=== PATIENT | female | born 1995 | race Caucasian/White ===

== ENCOUNTER 2016-09-12 22:21 | Emergency (ER) | payer OTHER ==
[~2016-09-12] VITALS: Ht 157.5 cm; Wt 53.5 kg
[2016-09-12 22:25] VITALS: Ht 157.5 cm; Wt 53.5 kg
[2016-09-12] MEDS ORDERED: ONDANSETRON 4 MG INJ IV STA (23:02)
--- NOTE | 2016-09-12 23:20 | ERD ---
ER Documentation Chief Complaint Date/Time DATE: 09/12/16 TIME: 23:19 Chief Complaint headaches x 5 days, states had spinal tap 6 days ago HPI This 21-year-old female presents the emergency department today complaining of headache for the past 6 days. Patient states that 4 weeks ago she started having some blurry vision in her left eye and she went to her primary care doctor and was told to go to the ER to get an MRI that was essentially normal. She saw a neurologist at that time and was given steroids because she "had a nerve inflamed in her eye". States she went to [facility] States that her vision is starting to come back. States that 6 days ago she had a spinal tap and was told it was "normal. States that she started with a headache the next day and was taking Tylenol however now it has gotten worse. States that the headache is throbbing on both sides of her head. States she does have some pain in her neck. States she did not go back to [facility] because this hospital was closer to her house. denies any fevers or chills. ROS All systems reviewed and are negative except as per history of present illness. Medications Home Meds Active Scripts Naproxen* (Naprosyn*) 500 Mg Tablet, 500 MG PO BID Y for PAIN AND/OR INFLAMMATION, #30 TAB Prov:JAZMIN ZAMORA PA-C 09/13/16 Allergies Allergies: Coded Allergies: No Known Drug Allergies (Verified Allergy, Unknown, 09/12/16) PMhx/Soc Medical and Surgical Hx: pt denies Medical Hx, pt denies Surgical Hx Hx Alcohol Use: No Hx Substance Use: No Hx Tobacco Use: No Smoking Status: Never smoker Physical Exam Vitals Vital Signs Date Time Temp Pulse Resp B/P Pulse Ox O2 Delivery O2 Flow Rate FiO2 09/13/16 00:52 98.0 61 18 102/56 99 Room Air 09/12/16 22:25 98.3 62 20 108/59 99 Physical Exam Const: NAD Head: Atraumatic Eyes: Normal Conjunctiva. PERRLA. EOM intact ENT: Normal External Ears, Nose and Mouth. Neck: Full range of motion..~ No meningismus. Negative Kernig Resp: Clear to auscultation bilaterally Cardio: Regular rate and rhythm, no murmurs Abd: Soft, non tender, non distended. Normal bowel sounds Skin: No petechiae or rashes Back: No midline or flank tenderness Ext: No cyanosis, or edema Neur: Awake and alert. No focal neurologic deficits. No gait ataxia Psych: Normal Mood and Affect Results 24 hrs Current Medications Medications (Trade) Dose Ordered Sig/Marlon Route PRN Reason Start Time Stop Time Status Last Admin Dose Admin Morphine Sulfate (morphine) 2 mg ONCE ONCE IV 09/12/16 23:30 09/12/16 23:31 DC 09/12/16 23:18 Ondansetron HCl 4 mg 4 mg ONCE STAT IV 09/12/16 23:02 09/12/16 23:04 DC 09/12/16 23:17 Sodium Chloride (NS) 1,000 ml @ 1,000 mls/hr Q1H ONCE IV 09/12/16 23:30 09/13/16 00:29 DC 09/12/16 23:17 Procedures/MDM This 21-year-old female presents the emergency department today complaining of a headache. Patient has previously been evaluated with an MRI and spinal tap in the past month. Patient is afebrile and otherwise well-appearing. She has full active range of motion of her neck. She has no focal neurologic deficits and no gait ataxia. Low suspicion for acute hemorrhage, mass, abscess, meningitis. Patient has a negative Kernig's and Brudzinski sign I discussed the patient with Dr. Castellanos he has requested visual acuity exam as well as medication for the pain for the patient. I do not feel the patient requires further laboratory workup or imaging at this time. Visual acuity left eye 20/70 Right eye 20/20 Bilateral 20/15 DIAGNOSTIC IMAGING REPORT Patient: TAMIKO DOMINGUEZ : 02/20/1993 Age: 23 Sex: M MR #: [id number] DOS: 09/13/16 0000 Ordering MD: JAZMIN ZAMORA PA-C Location: [facility] Room/Bed: PROCEDURE: XR right foot. CLINICAL INDICATION: Trauma. The patient stepped on a nail. Suspected foreign body under second toe TECHNIQUE: AP, lateral and oblique views of the right foot were obtained. COMPARISON: None. FINDINGS: Mineralization is within normal limits. No fracture or osseous lesion is identified. There is no evidence for dislocation. Joint spaces are preserved. The soft tissues are unremarkable. There is no evidence for radiopaque foreign body. RPTAT:HJJR IMPRESSION: Unremarkable right foot series without evidence of radiopaque foreign body. Zi Lara Physician Date Time Electronically viewed and signed by Zi Lara Physician on 09/13/2016 00:52 JR/ CC: JAZMIN ZAMORA PA-C Patient was given morphine, IV fluids and Zofran here in the emergency department and patient reported that her headache was significantly better. I have explained to the patient that is not uncommon to get headaches after a lumbar puncture. Patient understood. She was discharged home with Naprosyn and instructed to follow back up with her primary care doctor or her physicians that she saw over at [facility]. Patient understood. Patient symptoms at this time is consistent with headache. At this time the patient is stable for discharge and outpatient management. Patient should follow up with their PCP in the next 1-2 days. They may return to the emergency department sooner for any persistent or worsening of symptoms. Patient understood and agreed with the plan. Departure Diagnosis: Primary Impression: Headache Headache type: unspecified Headache chronicity pattern: unspecified pattern Intractability: not intractable Qualified Code: R51 - Nonintractable headache, unspecified chronicity pattern, unspecified headache type Condition: Fair JAZMIN ZAMORA PA-C Sep 12, 2016 23:20
[2016-09-12] MEDS ORDERED: SOD CHLORIDE 0.9% 1,000 ML IV ONE (23:30)
[2016-09-12] MEDS ORDERED: morphine 2 MG INJ IV ONE (23:30)
[2016-09-13] MEDS ORDERED: NAPR-260 PO (00:33)
[2016-09-13 00:52] VITALS: BP 102/56; PULSE 61; RESP 18; TEMP 98
== END 2016-09-13 00:55 | disposition home or self-care (01) ==
LOC: FTE 22:21
DX: R51 Headache (principal)
CPT/HCPCS: 96374; 96375; J2270; J2405; J7030; Z7502